=== PATIENT | female | born 2000 | race Caucasian/White ===

== ENCOUNTER 2023-08-07 23:16 | Emergency (ER) | payer SELFPAY ==
[2023-08-07 23:27] VITALS: BP 115/62; PULSE 111; RESP 15; TEMP 36.9; O2SAT 100; BMI 25.5
--- NOTE | 2023-08-08 00:04 | ED_ITS ---
HPI - General Adult General Chief complaint: Upper Respiratory Infection Stated complaint: BACK PAIN Time Seen by Provider: 08/07/23 23:56 Source: patient Mode of arrival: walk-in Limitations: no limitations History of Present Illness HPI narrative: This 23-year-old female with no significant medical history presents for evaluation of 2-3 days of generalized body aches with headache, back pain, chills and sweats. She has had some nausea but no vomiting or diarrhea. She states her mother is getting over influenza. She denies the possibility of . She has no chest pain or shortness of breath. She does not smoke. She denies any dizziness or syncope. She states she has been using NyQuil but not taking any additional medications. She is drinking oranges out of the vending machine while in the emergency department. Related Data Home Medications Medication Instructions Recorded Confirmed No Known Home Medications 08/07/23 08/07/23 Allergies Allergy/AdvReac Type Severity Reaction Status Date / Time No Known Drug Allergies Allergy Verified 08/07/23 23:29 Review of Systems ROS Status of ROS 10 or more systems reviewed and unremark able except as noted in history and below [facility] Social History Smoking status: Never smoker Exam Narrative Exam Narrative: Nurses note and vital signs reviewed and patient is not hypoxic.She was noted to be tachycardic with a pulse of 111 at triage General: Non toxic, mildly ill female resting comfortable in the stretcher, no respiratory distress, she is tearful at times Skin: Warm, dry, no pallor noted. There is no rash noted. Head: Normocephalic, atraumatic Eye: Normal conjunctiva, no drainage, EOMI. PERRL, no photophobia Ears, Nose, Mouth, and Throat: oral mucosa is sticky, no posterior pharyngeal redness or swelling Cardiovascular: Regular Rate and Rhythm tachycardic at triage at 111, pulse on exam 96 and regular Respiratory: Patient is in no distress, no accessory muscle use, lungs are clear to auscultation, no wheezing, rales or rhonchi Back: non-tender, no CVA tenderness bilaterally to percussion. GI: Normal bowel sounds, no tenderness to palpation, no masses appreciated. No rebound, guarding, or rigidity noted. Musculoskeletal: The patient has no evidence of calf tenderness, no pitting edema, symmetrical pulses noted bilaterally Neurological: A&O x4, normal speech, no focal deficits Psychiatric: Cooperative, tearful at times Constitutional Vital Signs, click to edit/add: Last Vital Signs Temp 98.4 F 08/07/23 23:27 Pulse 90 08/08/23 00:26 Resp 15 08/07/23 23:27 BP 105/57 08/08/23 00:26 Pulse Ox 100 08/08/23 00:26 O2 Del Method Room Air 08/07/23 23:27 Course Vital Signs Vital signs: Vital Signs Temperature 98.4 F 08/07/23 23:27 Pulse Rate 111 H 08/07/23 23:27 Respiratory Rate 15 08/07/23 23:27 Blood Pressure 115/62 08/07/23 23:27 Pulse Oximetry 100 08/07/23 23:27 Oxygen Delivery Method Room Air 08/07/23 23:27 Temperature 98.4 F 08/07/23 23:27 Pulse Rate 90 08/08/23 00:26 Respiratory Rate 15 08/07/23 23:27 Blood Pressure 105/57 08/08/23 00:26 Pulse Oximetry 100 08/08/23 00:26 Oxygen Delivery Method Room Air 08/07/23 23:27 Medical Decision Making MDM Narrative Medical decision making narrative: This 23-year-old female, nonsmoker, presents for evaluation of headache, chills, body aches that started 2 days ago. She had some nausea but no vomiting or diarrhea. She denies any chest pain or abdominal pain besides menstrual cramps.. She was noted to be tachycardic at triage with a pulse of 111. Her physical exam was benign. She was tested for influenza and Covid and a urinalysis was ordered due to her complaint of back pain. She is currently menstruating and having some abdominal cramping but her abdomen is soft and nontender. Her COVID 19 test is positive and influenza is negative, urine is negative for infection. She was medicated in emergency department IV fluids, Toradol and Tylenol and on reevaluation is feeling better. She is tolerating orange juice without any nausea or vomiting. The results of her labs were discussed with her. She is agreeable to PAxlovid and will be discharged home with Rx for Paxlovid and ibuprofen. Lab Data Labs: Lab Results 08/07/23 Range/Units 23:32 Urine Color Yellow (YELLOW) Urine Clarity Clear (CLEAR) Urine pH 5.5 (5.0-9.0) Ur Specific [place] >=1.030 A (1.005-1.025) Urine Protein 100 A (NEG/TRACE) mg/dL Urine Glucose (UA) Negative (NEGATIVE) mg/dL Urine Ketones Trace A (NEGATIVE) mg/dL Urine Occult Blood Large A (NEGATIVE) Urine Nitrite Negative (NEGATIVE) Urine Bilirubin Negative (NEGATIVE) Urine Urobilinogen 1.0 (0.2-1.0) EU/dL Ur Leukocyte Esterase Negative (NEGATIVE) Urine RBC 10-20 A (0-2) #/HPF Urine WBC 0-2 A (NONE SEEN) #/HPF Ur Squamous Epith Cells Few A (NONE/RARE) #/LPF Urine Crystals None seen (None Seen) #/HPF Urine Bacteria None seen (NONE SEEN) #/HPF Urine Casts None seen (NONE SEEN) #/LPF Urine Mucus Large A (NONE SEEN) SARS-CoV-2 (PCR) Positive A (NEGATIVE) Influenza Type A Ag Negative Influenza Type B Ag Negative Discharge Plan Discharge Chief Complaint: Upper Respiratory Infection Clinical Impression: COVID-19 Patient Disposition: Home, Self-Care Time of Disposition Decision: 01:28 Condition: Good Prescriptions / Home Meds: No Action No Known Home Medications Instructions: COVID-19 (Coronavirus Disease 2019) (ED), COVID-19: Slow the Coronavirus Spread (ED), Face Coverings (Masks) and COVID-19 (ED), How to Recover from COVID-19 at Home (ED) Stand Alone Forms: Portal Instructions Referrals: Stepan CAMACHO [Primary Care Provider] - 1 week
[2023-08-08 00:12] LABS: Influenza Virus A Antigen Negative; Influenza Virus B Antigen Negative; Internal Control Within Normal Limits; SARS-CoV-2 Ag POSITIVE (NEGATIVE)
[2023-08-08] MEDS: KETOROLAC TROMETHAMINE 30 MG/ML VIAL IVP (00:23)
[2023-08-08] MEDS: 0.9 % SODIUM CHLORIDE 1,000 ML 1000 ML IV (00:23)
[2023-08-08] MEDS: ACETAMINOPHEN 325 MG TABLET 650 MG PO (00:23)
[2023-08-08 00:26] VITALS: BP 105/57; PULSE 90; O2SAT 100
[2023-08-08 01:07] LABS: Bilirubin Urine NEGATIVE (NEGATIVE); Blood Urine LARGE (NEGATIVE); Clarity Urine CLEAR (CLEAR); Color Urine YELLOW (YELLOW); Glucose Urine UA NEGATIVE (NEGATIVE); Ketones Urine TRACE mg/dL (NEGATIVE); Leukocyte Esterase Urine NEGATIVE (NEGATIVE); Nitrite Urine NEGATIVE (NEGATIVE); Protein Urine 100 mg/dL (NEG/TRACE); Specific Gravity Urine >=1.030 (1.005-1.025); pH Urine 5.5 (5.0-9.0)
[2023-08-08 01:14] LABS: Bacteria Urine NONE SEEN #/HPF (NONE SEEN); WBC Urine 0-2 #/HPF (NONE SEEN)
[2023-08-08 01:15] LABS: Cast Seen? NONE SEEN #/LPF (NONE SEEN); Crystals Seen? None Seen #/HPF (None Seen); Mucus Urine LARGE (NONE SEEN); Squamous Epithelial Cell Urine FEW #/LPF (NONE/RARE)
[2023-08-08 01:38] VITALS: BP 102/57; PULSE 81; RESP 18; O2SAT 100
== END 2023-08-08 01:39 | disposition home or self-care (01) ==
PROVIDERS: Emergency Provider Emergency Medicine; PCP Family Medicine
DX: U07.1 COVID-19 (principal)
CPT/HCPCS: 81001; 87804; 87811; 96374; 99284

== ENCOUNTER 2024-01-07 20:15 | Outpatient (REF) | payer SELFPAY ==
--- OUTSIDE RECORDS SUMMARY | 2024-01-07 20:25 | XMS_ITS ---
Patient Summarization (C-CDA 2.1 CCD) Created on: January 07, 2024 ISABEL BROTHERS : 2000 Sex: Female Author Organization Sample organization Care Team Providers Care Risk Control Consultant Name Role Phone DOUG, DR Stepan BURKETT Primary Care Unavailable JUSTICE ., NIKKY Attending Unavailable JUSTICE ., NIKKY Admitting Unavailable EVARISTO BOWER Consulting Unavailable JUSTIEC ., NIKKY Consulting Unavailable DOUG, DR Stepan BURKETT Primary Care Unavailable MISC, DR HENRY Consulting Unavailable MISC, DR HENRY Attending Unavailable MISC, DR HENRY Admitting Unavailable BRIGHT ., DR RODRIGUES Admitting Unavailken NOVOA ., DR RODRIGUES Consulting Unavailken CAMACHO, DR Stepan BURKETT Primary Care Unavailable BRIGHT ., DR RODRIGUES Attending UnavailLOKI Tobar Attending Unavailable LOKI CAMACHO Referring Unavailable LOKI CAMACHO Attending Unavailable LOKI CAMACHO Referring Unavailable SEBLE ELLIS Attending Unavailable Encounters Encounter Date Encounter Type Care Provider Facility Start: 11-25-2023 End: 11-25-2023 ambulatory SEBLE ELLIS Not Available Start: 11-19-2023 End: 11-19-2023 ambulatory LOKI CAMACHO Not Available Start: 10-29-2023 End: 10-29-2023 ambulatory LOKI CAMACHO Not Available Start: 11-06-2022 End: 11-06-[address] Stepan CAMACHO Facility:[facility] Start: 03-12-2022 End: 03-12-[address] Stepan CAMACHO Facility:[facility] Start: 12-22-2021 End: 12-22-[address] LILIA NOVOA . Facility: Payers Date Payer Category Payer Medicaid [id number] 2000 Unknown [id number] [id number] 2000 Unknown [id number] 2.16.84 [id number] 2000 Unknown [id number] 2.16.84 [id number] 2000 Unknown [id number] 2.16.84 [id number] 2002 Unknown [id number] 2.16.84 [id number] 2000 Unknown [id number] 2.16.84 [id number] 1957 Unknown [id number] Problems Active Problems Problem Classification Problem Date Documented Da te Episodic/Chronic Nausea and vomiting (4 sources) Nausea with vomiting, unspecified; Translations: [NAUSEA WITH VOMITING UNSPECIFIED] Onset: 11-06-2022 Episodic Unclassified (3 sources) CONTACT W/AND (SUSP) EXPOS COVID-19; Translations: [CONTACT W/AND (SUSP) EXPOS COVID-19] Onset: 03-15-2022 Past or Other Problems Problem Classification Problem Date Documented Date Episodic/Chronic Immunizations and screening for infectious disease (4 sources) Contact with and (suspected) exposure to infections with a predominantly sexual mode of transmission; Translations: [CONTCT W EXPOS INFECT SEXUAL TRNSMS] Onset: 12-22-2021 Episodic Other upper respiratory infections (1 source) Acute upper respiratory infection, unspecified; Translations: [ACUTE UP RESPIRATORY INFECTION UNS] Onset: 03-15-2022 Episodic Unclassified (1 source) CONTACT W/AND (SUSP) EXPOS COVID-19; Translations: [CONTACT W/AND (SUSP) EXPOS COVID-19] Onset: 03-12-2022 Results Test Name Value Interpretation Reference Range Facil ity AMYLASEon 11-06-2022 Amylase [Catalytic activity/Vol] 54 U/L Normal 25-115 [facility] Comment on above: Performed By: #### A MY, CMP, LIPA #### [facility] [address] [address] [address] Grover Mendoza CBC AUTO DIFFon 11-06-2022 BASO # 0.0 103/ul Normal 0.0-0.1 [facility] Comment on above: Performed By: #### C BC #### [facility] [address] [place] [address] Dr. Grover Mendoza Basophils/100 WBC (Bld) 0.1 % Critically low 0.2-2.0 [facility] Comment on above: Performed By: #### C BC #### [facility] [address] [place] [address] Dr. Grover Mendoza EO # 0.0 103/ul Normal 0.0-0.7 [facility] Comment on above: Performed By: #### C BC #### [facility] [address] [place] [address] Dr. Grover Mendoza Eosinophils/100 WBC (Bld) 0.1 % Critically low 0.9-7.0 [facility] Comment on above: Performed By: #### C BC #### [facility] [address] [place] [address] Dr. Grover Mendoza Erythrocyte distribution width (RBC) [Ratio] 12.9 % Normal 11.0-15.0 [facility] Comment on above: Performed By: #### C BC #### [facility] [address] [place] [address] Dr. Grover Mendoza Hematocrit (Bld) [Volume fraction] 41.1 % Normal 36.0-48.0 [facility] Comment on above: Performed By: #### C BC #### [facility] [address] [place] [address] Dr. Grover Mendoza Hemoglobin (Bld) [Mass/Vol] 13.5 g/dL Normal 12.0-16.0 [facility] Comment on above: Performed By: #### C BC #### [facility] [address] [place] [address] Dr. Grover Mendoza IG # 0.05 10e3/ul Critically high 0.00-0.03 [facility] Comment on above: Performed By: #### C BC #### [facility] [address] [place] [address] Dr. Grover Mendoza IG % 0.3 % Normal 0.0-0.5 [facility] Comment on above: Performed By: #### C BC #### [facility] [address] [address] [address] Grover Mendoza LYMPH # 0.4 103/ul Critically low 1.2-3.8 [facility] Comment on above: Performed By: #### C BC #### [facility] [address] [address] [address] Grover Mendoza Lymphocytes/100 WBC (Bld) 2.6 % Critically low 20.5-60.0 [facility] Comment on above: Performed By: #### C BC #### [facility] [address] [place] [address] Dr. Grover Mendoza MANUAL DIFF REQ NO Normal [facility] Comment on above: Performed By: #### C BC #### [facility] [address] [place] [address] Dr. Grover Mendoza MCH (RBC) [Entitic mass] 30.7 pg Normal 26.7-34.0 [facility] Comment on above: Performed By: #### C BC #### [facility] [address] [place] [address] Dr. Grover Mendoza MCHC (RBC) [Mass/Vol] 32.8 g/dL Normal 29.9-35.2 [facility] Comment on above: Performed By: #### C BC #### [facility] [address] [place] [address] Dr. Grvoer Mendoza MCV (RBC) [Entitic vol] 93.4 fL Normal 81.0-99.0 [facility] Comment on above: Performed By: #### C BC #### [facility] [address] [place] [address] Dr. Grover Mendoza MONO # 0.4 103/ul Normal 0.3-0.8 [facility] Comment on above: Performed By: #### C BC #### [facility] [address] [place] [address] Dr. Grover Mendoza Monocytes/100 WBC (Bld) 2.7 % Normal 1.7-12.0 [facility] Comment on above: Performed By: #### C BC #### [facility] [address] [address] [address] Grover Mendoza NEUT # 13.8 103/ul Critically high 1.4-6.5 [facility] Comment on above: Performed By: #### C BC #### [facility] [address] [place] [address] Dr. Grover Mendoza Neutrophils/100 WBC (Bld) 94.2 % Critically high 43.0-75.0 [facility] Comment on above: Performed By: #### C BC #### [facility] [address] [place] [address] Dr. Grover Mendoza Platelet mean volume (Bld) [Entitic vol] 10.2 fL Normal 9.5-13.5 [facility] Comment on above: Performed By: #### C BC #### [facility] [address] [place] [address] Dr. Grover Mendoza PLT 215 103/ul Normal 150-450 [facility] Comment on above: Performed By: #### C BC #### [facility] [address] [place] [address] Dr. Grover Mendoza RBC 4.40 106/ul Normal 4.20-5.40 [facility] Comment on above: Performed By: #### C BC #### [facility] [address] [place] [address] Dr. Grover Mendoza WBC 14.7 103/ul Critically high 4.0-11.0 [facility] Comment on above: Performed By: #### C BC #### [facility] [address] [place] [address] Dr. Grover Mendoza ER URINE PROFILEon 3 Bilirubin Ql (U) Negative Normal NEGATIVE [facility] Comment on above: Performed By: #### E KIMMY PREGU UMICRO #### [facility] [address] [place] [address] Dr. Grover Mendoza Clarity (U) CLEAR Normal CLEAR [facility] Comment on above: Performed By: #### [place] RUR, PREGU, UMICRO #### [facility] [address] [address] [address] Grover Mendoza Color (U) YELLOW Normal YELLOW [facility] Comment on above: Performed By: #### E RUR, PREGU, UMICRO #### [facility] [address] [address] [address] Grover ONEAL A micrscopic examination will be performed if indicated. Normal [facility] Comment on above: Performed By: #### E RUR, PREGU, UMICRO #### [facility] [address] [address] [address] Grover Mendoza Glucose Ql (U) Negative Normal NEGATIVE [facility] Comment on above: Performed By: #### Duke RUR, PREGU, UMICRO #### [facility] [address] [address] [address] Grover Mendoza Hemoglobin Ql (U) MODERATE Abnormal NEGATIVE [facility] Comment on above: Performed By: #### [place] RUR, PREGU, UMICRO #### [facility] [address] [address] [address] Grover Mendoza Ketones Ql (U) TRACE Abnormal NEGATIVE [facility] Comment on above: Performed By: #### [place] RUR, PREGU, UMICRO #### [facility] [address] [address] [address] Grover Mendoza LEUKOCYTES Negative Normal NEGATIVE [facility] Comment on above: Performed By: #### [place] RUR, PREGU, UMICRO #### [facility] [address] [address] [address] Grover Mendoza Nitrite Ql (U) Negative Normal NEGATIVE [facility] Comment on above: Performed By: #### E RUR, PREGU, UMICRO #### [facility] [address] [address] [address] Grover Mendoza pH (U) 5.5 [pH] Normal 5-9 [facility] Comment on above: Performed By: #### E RUR, PREGU, UMICRO #### [facility] [address] [address] [address] Grover Mendoza Protein (U) [Mass/Vol] 30 mg/dL Abnormal NEGATIVE/ TRACE [facility] Comment on above: Performed By: #### PREMA CRISTINA UMICRO #### [facility] [address] [place] [address] Dr. Grover Mendoza SPEC GRAVITY >=1.030 Abnormal 1.005-<=1.025 [facility] Comment on above: Performed By: #### PREMA CRISTINA UMICRO #### [facility] [address] [place] [address] Dr. Grover Mendoza UR MICRO IND INDICATED Normal [facility] Comment on above: Performed By: #### PREMA CRISTINA UMICRO #### [facility] [address] [place] [address] Dr. Grover Mendoza Urobilinogen Qn (U) 0.2 {Meg'U}/dL Normal 0.2 - 1.0 [facility] Comment on above: Performed By: #### PREMA CRISTINA UMICRO #### [facility] [address] [place] [address] Dr. Grover Mendoza LIPASEon 11-06-2022 Lipase [Catalytic activity/Vol] 58.0 U/L Critically low 73.0-393.0 [facility] Comment on above: Performed By: #### A MY, CMP, LIPA #### [facility] [address] [place] [address] Dr. Grover Mendoza URon 11-06-2022 , QUAL Negative Normal NEGATIVE [facility] Comment on above: Performed By: #### E PREMA ONEAL, UMICRO #### [facility] [address] [place] [address] Dr. Grover Mendoza PROF 14(COMP METB)on 023 Albumin [Mass/Vol] 3.3 g/dL Critically low 3.4-5.0 [facility] Comment on above: Performed By: #### A MY, CMP, LIPA #### [facility] [address] [address] [address] Grover Mendoza Albumin/Globulin [Mass ratio] 1.1 {ratio} Normal [facility] Comment on above: Performed By: #### A MY, CMP, LIPA #### [facility] [address] [address] [address] Grover Mendoza ALP [Catalytic activity/Vol] 73 U/L Normal 46-116 [facility] Comment on above: Performed By: #### A MY, CMP, LIPA #### [facility] [address] [place] [address] Dr. Grover Mendoza ALT [Catalytic activity/Vol] 28 U/L Normal 14-59 [facility] Comment on above: Performed By: #### A MY, CMP, LIPA #### [facility] [address] [place] [address] Dr. Grover Mendoza Anion gap [Moles/Vol] 12.4 mmol/L Normal [facility] Comment on above: Performed By: #### A MY, CMP, LIPA #### [facility] [address] [place] [address] Dr. Grover Mendoza AST [Catalytic activity/Vol] 20 U/L Normal 15-37 [facility] Comment on above: Performed By: #### A MY, CMP, LIPA #### [facility] [address] [place] [address] Dr. Grover Mendoza Bilirubin [Mass/Vol] 0.9 mg/dL Normal 0.2-1.0 [facility] Comment on above: Performed By: #### A MY, CMP, LIPA #### [facility] [address] [place] [address] Dr. Grover Mendoza Calcium [Mass/Vol] 8.4 mg/dL Critically low 8.5-10.1 [facility] Comment on above: Performed By: #### A MY, CMP, LIPA #### [facility] [address] [place] [address] Dr. Grover Mendoza Chloride [Moles/Vol] 106 mmol/L Normal 98-107 [facility] Comment on above: Performed By: #### A MY, CMP, LIPA #### [facility] [address] [address] [address] Grover Mendoza CO2 [Moles/Vol] 26.7 mmol/L Normal 21.0-32.0 [facility] Comment on above: Performed By: #### A MY, CMP, LIPA #### [facility] [address] [address] [address] Grover Mendoza Creatinine [Mass/Vol] 0.63 mg/dL Normal 0.55-1.02 [facility] Comment on above: Performed By: #### A MY, CMP, LIPA #### [facility] [address] [address] [address] Grover Mendoza EGFR-AF PANAMANIAN >60 Normal >=60 [facility] Comment on above: Performed By: #### A MY, CMP, LIPA #### [facility] [address] [address] [address] Grover Mendoza EGFR-NON AF PANAMANIAN >60 Normal >=60 [facility] Comment on above: Performed By: #### A MY, CMP, LIPA #### [facility] [address] [address] [address] Grover Mendoza Globulin (S) [Mass/Vol] 3.1 g/dL Normal [facility] Comment on above: Performed By: #### A MY, CMP, LIPA #### [facility] [address] [address] [address] Grover Mendoza Glucose [Mass/Vol] 93 mg/dL Normal 74-106 [facility] Comment on above: Performed By: #### A MY, CMP, LIPA #### [facility] [address] [address] [address] Grover Mendoza Potassium [Moles/Vol] 4.1 mmol/L Normal 3.5-5.1 [facility] Comment on above: Performed By: #### A MY, CMP, LIPA #### [facility] [address] [address] [address] Grover Mendoza Protein [Mass/Vol] 6.4 g/dL Normal 6.4-8.2 [facility] Comment on above: Performed By: #### A MY, CMP, LIPA #### [facility] [address] [address] [address] Grover Mendoza Sodium [Moles/Vol] 141 mmol/L Normal 136-145 [facility] Comment on above: Performed By: #### A MY, CMP, LIPA #### [facility] [address] [place] [address] Dr. Grover Mendoza Urea nitrogen [Mass/Vol] 12.0 mg/dL Normal 7.0-18.0 [facility] Comment on above: Performed By: #### A MY, CMP, LIPA #### [facility] [address] [place] [address] Dr. Grover Mendoza Urea nitrogen/Creatinin e [Mass ratio] 19.0 mg/mg Normal [facility] Comment on above: Performed By: #### A MY, CMP, LIPA #### [facility] [address] [place] [address] Dr. Grover Mendoza URINE MICROSCOPIC ONLYon BACTERIA TRACE Abnormal NONE SEEN [facility] Comment on above: Performed By: #### E RUR PREGU, UMICRO #### [facility] [address] [place] [address] Dr. Grover Mendoza Bacteria identified Cx Nom (U) NOT INDICATED Normal [facility] Comment on above: Performed By: #### E RUR PREGU, UMICRO #### [facility] [address] [place] [address] Dr. Grover Mendoza CAST NONE SEEN Normal NONE SEEN [facility] Comment on above: Performed By: #### E RUR, PREGU, UMICRO #### [facility] [address] [place] [address] Dr. Grover Mendoza Crystals LM Nom (Urine sed) NONE SEEN Normal NONE SEEN [facility] Comment on above: Performed By: #### E RUR, PREGU, UMICRO #### [facility] [address] [place] [address] Dr. Grover Mendoza Epithelial cells LM Ql (Urine sed) MODERATE Abnormal NONE SEEN /RARE [facility] Comment on above: Performed By: #### E RUR, PREGU, UMICRO #### [facility] [address] [address] [address] Grover Mendoza MUCOUS TRACE Abnormal NONE SEEN [facility] Comment on above: Performed By: #### E RUR, PREGU, UMICRO #### [facility] [address] [address] [address] Grover Mendoza RBC 5-10 Abnormal 0-2 [facility] Comment on above: Performed By: #### E RUR, PREGU, UMICRO #### [facility] [address] [address] [address] Grover Mendoza WBC 0-2 Abnormal NONE SEEN [facility] Comment on above: Performed By: #### E RUR, PREGU, UMICRO #### [facility] [address] [address] [address] Grover Mendoza XR ABD FLAT UP_PA Carol Ann 11-06 XR ABD FLAT UP_PA CH EXAM TYPE: XR ABD FLAT UP_PA CH EXAM DATE AND TIME: 11/06/2022 7:48 PM EDT INDICATION: 22 years old Female with nausea and vomiting COMPARISON: None. TECHNIQUE: Frontal view of the chest. Supine and upright views of the abdomen. FINDINGS: No pneumothorax, pleural effusion or focal consolidation. Heart size is within normal limits. Normal nonobstructive bowel gas pattern. No subdiaphragmatic free intraperitoneal air. No pathologic calcifications. Visualized osseous structures appear unremarkable. IMPRESSION: No significant abnormality. Electronically authenticated by: EVARISTO BOWER Date: 2022-11-06 20:53 Normal [facility] Covid-19 PCR (CVDTBH)on 08 SARS-CoV-2 (COVID-19) RNA ATTILA+probe Ql (Unsp spec) Not detected Normal NOT DETECTED [facility] Comment on above: Result Comment: This test is not yet approved or cleared by the [place] FDA. When there are no FDA-approved or cleared tests available, and other criteria are met, FDA can make tests available under an emergency access mechanism called an Emergency Use Authorization (EUA). The EUA for this test is supported by the [employer] of Health and Human Service's (HHS's) declaration that circumstances exist to justify the emergency use of in vitro diagnostics for the detection and/or diagnosis of the virus that causes COVID-19. This EUA will remain in effect (meaning this test can be used) for the duration of the COVID-19 declaration justifying emergency of IVDs, unless it is terminated or revoked by FDA (after which the test may no longer be used). When diagnostic testing is negative, the possibility of a false negative should be considered in the context of a patient's recent exposures and the presence of clinical signs and symptoms consistent with SARS-CoV-2. Performed By: #### V AGINT #### [facility] [address] [place] [address] Dr. Grover Mendoza CHLAMYDIA/GONOCOCCUS ATTILA ( AB/URINE/PAPon 12-26-2021 Chlamydia trachomatis, ATTILA Negative Normal Negative [facility] Comment on above: Performed By: #### C T/NGNA #### [facility] [address] [place] [address] Dr. Grover Mendoza Neisseria gonorrhoeae, ATTILA Negative Normal Negative [facility] Comment on above: Performed By: #### C T/NGNA #### [facility] [address] [place] [address] Dr. Grover Mendoza VAGINITIS/VAGINOSIS DNA PROB Emil 12-24-2021 Jessi species Negative Normal Negative [facility] Comment on above: Performed By: #### V AGINT #### [facility] [address] [place] [address] Dr. Grover Mendoza Gardnerella vaginalis Positive Abnormal Negative [facility] Comment on above: Performed By: #### V AGINT #### [facility] [address] [place] [address] Dr. Grover Mendoza Trichomonas vaginalis Negative Normal Negative [facility] Comment on above: Performed By: #### V AGINT #### [facility] [address] [place] [address] Dr. Grover Mendoza Summary Purpose Family History No Family History Records FoundNo Family History Records Found Advance Directives No Advanced Directives Records FoundNo Advanced Directives Records Found Additional Source Comments INFORMATION SOURCE (unrecogn ized section and content) DATE CREATED AUTHOR 11/10/2022 [facility] DATE CREATED AUTHOR AUTHOR'S RHONDA SALAZAR 11/26/2023 [facility] EPIC FOR RECORDS PERTAINING TO PATIENTS WHO ARE OR HAVE BEEN ENROLLED IN A CHEMICAL DEPENDENCY/SUBSTANCEABUSE PROGRAM, SOME INFORMATION MAY BE OMITTED. This clinical summary was aggregated from multiple sources. Caution should be exercised in using it in the provision of clinical care. This summary normalizes information from multiple sources, and as a consequence, information in this document may materially change the coding, format and clinical context of patient data. In addition, data may be omitted in some cases. CLINICAL DECISIONS SHOULD BE BASED ON THE PRIMARY CLINICAL RECORDS. [employer] provides no warranty or guarantee of the accuracy or completeness of information in this document.
== END 2024-01-07 20:16 | disposition home or self-care (01) ==
LOC: LAB 20:15
PROVIDERS: PCP Family Medicine; Visit Provider Obstetrics & Gynecology
DX: Z01.419 Encounter for gynecological examination (general) (routine) without abnormal findings (principal)
CPT/HCPCS: 88175

== ENCOUNTER 2024-01-23 13:42 | Emergency (ER) | payer MEDICAID, SELFPAY ==
[2024-01-23 13:58] VITALS: BP 108/59; PULSE 74; TEMP 37.2; O2SAT 95; BMI 25.2
--- NOTE | 2024-01-23 14:08 | ED_ITS ---
HPI HPI - General Adult General Chief complaint: Recheck/Abnormal Lab/Rx Stated complaint: VOMITING, CHILLS, HEADACHE Time Seen by Provider: 01/23/24 14:02 Source: patient Mode of arrival: walk-in Limitations: no limitations History of Present Illness HPI narrative: Patient is a 23-year-old female who presents to the emergency department for work clearance. 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 Her symptoms soon resolved. She has no focal medical complaints on arrival to the ER today but states that her employer required her to be evaluated by a provider and cleared to go back to work. She has no persistent dizziness, visual changes, fevers, upper respiratory symptoms, abdominal pain, vomiting or diarrhea. She is not concerned for . Related Data Home Medications ?Medication ?Instructions ?Recorded ?Confirmed aripiprazole 5 mg tablet 5 mg PO DAILY 01/23/24 01/23/24 escitalopram oxalate 10 mg tablet 10 mg PO DAILY 01/23/24 01/23/24 Previous Rx's ?Medication ?Instructions ?Recorded ondansetron 4 mg disintegrating 4 mg PO Q6H PRN nausea and 01/23/24 tablet vomiting #12 tabs Allergies Allergy/AdvReac Type Severity Reaction Status Date / Time No Known Drug Allergies Allergy Verified 01/23/24 14:04 Opioid HPI Opioid Management Most Recent Opioid Data: No Data to Display Review of Systems ROS Constitutional Denies: fever or chills Eyes Denies: change in vision Ears, nose, mouth, and throat Denies: throat pain or nasal congestion Cardiovascular Denies: chest pain Respiratory Denies: shortness of breath Gastrointestinal Reports: nausea and vomiting Musculoskeletal Denies: back pain Integumentary/Breast Denies: rash Neurological Reports: dizziness; Denies: headache Hematologic/Lymphatic Denies: easy bruising or easy bleeding [facility] Medical History (Updated 01/23/24 @ 14:11 by MIGUE Fernandez) Depression ?F32.A - Depression, unspecified (ICD-10) Social History Smoking status: Never smoker Exam Narrative Exam Narrative: Gen.: Awake, alert, in no distress Head: Normocephalic, atraumatic ENT: Moist mucous membranes Respiratory: No respiratory distress, lungs clear bilaterally Cardio: Regular rate and rhythm Gastrointestinal: Abdomen is soft, nondistended and nontender to palpation Extremities: Moves extremities equally Psych: Normal mood and affect Neuro: No focal neuro deficit Skin: Warm, dry, intact Constitutional Vital Signs, click to edit/add: Last Vital Signs Temp 99.0 F 01/23/24 13:58 Pulse 74 01/23/24 13:58 Resp 16 01/23/24 13:58 BP 108/59 01/23/24 13:58 Pulse Ox 95 01/23/24 13:58 O2 Del Method Room Air 01/23/24 13:58 Course Vital Signs Vital signs: Vital Signs Temperature 99.0 F 01/23/24 13:58 Pulse Rate 74 01/23/24 13:58 Respiratory Rate 16 01/23/24 13:58 Blood Pressure 108/59 01/23/24 13:58 Pulse Oximetry 95 01/23/24 13:58 Oxygen Delivery Method Room Air 01/23/24 13:58 Temperature 99.0 F 01/23/24 13:58 Pulse Rate 74 01/23/24 13:58 Respiratory Rate 16 01/23/24 13:58 Blood Pressure 108/59 01/23/24 13:58 Pulse Oximetry 95 01/23/24 13:58 Oxygen Delivery Method Room Air 01/23/24 13:58 Medical Decision Making MDM Narrative Medical decision making narrative: Patient with no focal medical complaints in the ER and stable vital signs. She was Encouraged to be reevaluated if she develops any worsening of symptoms, Zofran sent to the pharmacy if needed. Return to the ER if symptoms change or worsen. Medical Records Medical records reviewed: Yes I reviewed the patient's medical records Discharge Plan Discharge Stand Alone Forms: Portal Instructions Chief Complaint: Recheck/Abnormal Lab/Rx Clinical Impression: Vomiting, Encounter to obtain excuse from work Patient Disposition: Home, Self-Care Time of Disposition Decision: 14:11 Condition: Good Prescriptions / Home Meds: New ondansetron 4 mg tablet,disintegrating 4 mg PO Q6H PRN (Reason: nausea and vomiting) Qty: 12 0RF No Action aripiprazole 5 mg tablet 5 mg PO DAILY escitalopram oxalate 10 mg tablet 10 mg PO DAILY Print Language: Azerbaijani Instructions: Acute Nausea and Vomiting (ED) Referrals: Stepan CAMACHO [Primary Care Provider] - 1 week
== END 2024-01-23 14:15 | disposition home or self-care (01) ==
PROVIDERS: Emergency Provider Student in an Organized Health Care Education/Training Program; PCP Family Medicine
DX: R11.10 Vomiting, unspecified (principal)
CPT/HCPCS: 99283

== ENCOUNTER 2024-08-08 18:46 | Emergency (ER) | payer MEDICAID, SELFPAY ==
--- OUTSIDE RECORDS SUMMARY | 2024-08-08 18:52 | XMS_ITS | CCD ---
Author Organization [facility] Care Team Providers Care Lpc Name Role Phone DR Stepan CARRERO Primary Care Unavailable JUSTICE ., NIKKY Attending Unavailable JUSTICE ., NIKKY Admitting Unavailable EVARISTO BOWER Consulting Unavailable JUSTICE ., NIKKY Consulting Unavailable DOUG, DR Stepan BURKETT Primary Care Unavailable MISC, DR HENRY Consulting Unavailable MISC, DR HENRY Attending Unavailable MISC, DR HENRY Admitting Unavailable KIANAASIMillicent ., DR RODRIGUES Admitting Unavailken NOVOA ., DR RODRIGUSE Consulting Unavailken CARRERO, DR Stepan BURKETT Primary Care Unavailable KARDAVID ., DR RODRIGUES Attending UnavailLoki Woody DO Primary Care Provider LOKI CARRERO Attending Unavailable LOKI CARRERO Referring Unavailable LOKI CARRERO Attending Unavailable LOKI CARRERO Referring Unavailable SEBLE MONREAL Attending Unavailable SEBLE MONREAL Attending Unavailable KATHARINE BYRNES Attending Unavailable KATHARINE BYRNES Attending Unavailable Allergies Allergy Classification Reported Allergen(s) Allergy Type Date of Onset Reaction(s) Facility (7 sources) Sertraline Drug Allergy 10-29-2023 [facility] Work Phone: Medications Current Medications Medication Drug Class(es) Dates Sig (Normalized) Sig (Original) ARIPiprazole 5 mg oral tablet (7 sources) Atypical Antipsychotic Start: 05-01-2024 take 1 tablet by mouth once daily ARIPiprazole (Abilify) 5 MG tablet Indications: Bipolar II disorder (CMS/HCC) , Unspecified mood (affective) disorder (CMS/HCC) TAKE 1 TABLET BY MOUTH EVERY DAY 30 tablet 2 05/01/2024 Active biotin 1 mg chewable tablet (7 sources) Biotin 1000 MCG chewable tablet Chew Active escitalopram 10 mg oral tablet (7 sources) Serotonin Reuptake Inhibitor Start: 11-19-2023 take 1 tablet by mouth once daily escitalopram (Lexapro) 10 MG tablet Indications: Bipolar II disorder (CMS/HCC) Take 1 tablet (10 mg) by mouth Daily 30 tablet 5 11/19/2023 Active fluconazole 150 mg oral tablet (2 sources) Azole Antifungal Start: 07-23-2024 End: 07-27-2024 take 1 tablet by mouth once fluconazole (Diflucan) 150 MG tablet Indications: Yeast infection Take 1 tablet (150 mg) by mouth every 3rd (third) day for 2 doses 2 tablet 07/23/2024 07/27/2024 Active Problems Active Problems Problem Classification Problem Date Documented Date Episodic/Chronic Anxiety disorders (7 sources) Anxiety; Translations: [Anxiety disorder, unspecified] Onset: 10-29-2023 10-29-2023 Chronic Immunizations and screening for infectious disease (10 sources) Contact with and (suspected) exposure to infections with a predominantly sexual mode of transmission; Translations: [Exposure to sexually transmissible disorder] Onset: 12-22-2021 Episodic Inflammatory diseases of female pelvic organs (4 sources) Bacterial vaginosis; Translations: [Acute vaginitis] Onset: 07-23-2024 07-23-2024 Episodic Malaise and fatigue (7 sources) Chronic fatigue syndrome; Translations: [Chronic fatigue syndrome] Onset: 10-29-2023 10-29-2023 Chronic Menstrual disorders (7 sources) Menorrhagia; Translations: [Excessive and frequent menstruation with regular cycle] Onset: 10-29-2023 10-29-2023 Chronic Mood disorders (20 sources) Affective psychosis; Translations: [Unspecified mood [affective] disorder] Onset: 10-29-2023 10-29-2023 Chronic Mycoses (2 sources) Mycosis; Translations: [Candidiasis, unspecified] 07-23-2024 Episodic Nausea and vomiting (4 sources) Nausea with vomiting, unspecified; Translations: [NAUSEA WITH VOMITING UNSPECIFIED] Onset: 11-06-2022 Episodic Sexually transmitted infections (not HIV or hepatitis) (4 sources) Chlamydia trachomatis infection; Translations: [Sexually transmitted chlamydial infection of other sites] Onset: 07-23-2024 07-23-2024 Episodic Unclassified (3 sources) CONTACT W/AND (SUSP) EXPOS COVID-19; Translations: [CONTACT W/AND (SUSP) EXPOS COVID-19] Onset: 03-15-2022 Past or Other Problems Problem Classification Problem Date Documented Da te Episodic/Chronic Mood disorders (7 sources) Mood swings; Translations: [Emotional lability] Onset: 10-29-2023 10-29-2023 Episodic Mood disorders (7 sources) Mood disorders Onset: 10-29-2023 10-29-2023 Other upper respiratory infections (1 source) Acute upper respiratory infection, unspecified; Translations: [ACUTE UP RESPIRATORY INFECTION UNS] Onset: 03-15-2022 Episodic Residual codes; unclassified (7 sources) Insomnia; Translations: [Insomnia, unspecified] Onset: 10-29-2023 10-29-2023 Episodic Unclassified (1 source) CONTACT W/AND (SUSP) EXPOS COVID-19; Translations: [CONTACT W/AND (SUSP) EXPOS COVID-19] Onset: 03-12-2022 Results Test Name Value Interpretation Reference Range Facility RECURRENT VAGINITIS (HTRX)on 06-24-2024 ATOPOBIUM VAGINAE 19.87 Abnormal [facility] ATOPOBIUM VAGINAE Detected Abnormal [facility] BVAB 2,3 (BACTERIAL VAGINOSIS ASSOCIATED BACTERIA 2, 3); MOBILUNCUS SPP 10.822 Abnormal [facility] BVAB 2,3 (BACTERIAL VAGINOSIS ASSOCIATED BACTERIA 2, 3); MOBILUNCUS SPP Detected Abnormal [facility] JESSI ALBICANS, PARAPSILOSIS, TROPICALIS 0 [facility] JESSI ALBICANS, PARAPSILOSIS, TROPICALIS Not detected [facility]ESSI GLABRATA 0 [facility]ESS[facility] GLAB[facility]ATA [facility] JESSI KRUSEI 0 [facility] JESSI KRUSEI Not detected [facility] CHLAMYDIA TRACHOMATIS 30.948 Abnormal [facility] CHLAMYDIA TRACHOMATIS Detected Abnormal [facility] ERMB, C; MEFA 24.579 Abnormal [facility] Health care ERMB, C; MEFA Detected Abnormal [facility] Health care GARDNERELLA VAGINALIS 27.333 Abnormal [facility] GARDNERELLA VAGINALIS Detected Abnormal [facility] Interpretation and review of laboratory results Abnormal [facility] re MEGASPHAERA (TYPES 1, 2) 22.173 Abnormal [facility] MEGASPHAERA (TYPES 1, 2) Detected Abnormal [facility] MYCOPLASMA GENITALIUM 0 [facility] MYCOPLASMA GENITALIUM Not detected [facility] NEISSERIA GONORRHOEAE 0 [facility] NEISSERIA GONORRHOEAE Not detected [facility] TET B, TET M 21.151 Abnormal [facility] are TET B, TET M Detected Abnormal [facility]c are TRICHOMONAS VAGINALIS 0 [facility] TRICHOMONAS VAGINALIS Not detected [facility] AMYLASEon 11-06-2022 Amylase [Catalytic activity/Vol] 54 U/L Normal 25-[address] [facility] Comment on above: Performed By: #### A MY, CMP, LIPA #### [facility] [address] [place] [address] Dr. Grover Mendoza CBC AUTO DIFFon 11-06-2022 BASO # 0.0 103/ul Normal 0.0-0.[address] [facility] Comment on above: Performed By: #### C BC #### [facility] [address] [place] [address] Dr. Grover Mendoza Basophils/100 WBC (Bld) 0.1 % Critically low 0.2-2.[address] [facility] Comment on above: Performed By: #### C BC #### [facility] [address] [place] [address] Dr. Grover Mendoza EO # 0.0 103/ul Normal 0.0-0.[address] [facility] Comment on above: Performed By: #### C BC #### [facility] [address] [place] [address] Dr. Grover Mendoza Eosinophils/100 WBC (Bld) 0.1 % Critically low 0.9-7.0 [facility] Comment on above: Performed By: #### C BC #### [facility] [address] [place] [address] Dr. Grover Mendoza Erythrocyte distribution width (RBC) [Ratio] 12.9 % Normal 11.0-15.0 [facility] Comment on above: Performed By: #### C BC #### [facility] [address] [place] [address] Dr. Grover Mendoza Hematocrit (Bld) [Volume fraction] 41.1 % Normal 36.0-48.[address] [facility] Comment on above: Performed By: #### C BC #### [facility] [address] [address] [address] Grover Mendoza Hemoglobin (Bld) [Mass/Vol] 13.5 g/dL Normal 12.0-16.[address] [facility] Comment on above: Performed By: #### C BC #### [facility] [address] [address] [address] Grover Mendoza IG # 0.05 10e3/ul Critically high 0.00-0.03 [facility] Comment on above: Performed By: #### C BC #### [facility] [address] [address] [address] Grover Mendoza IG % 0.3 % Normal 0.0-0.[address] [facility] Comment on above: Performed By: #### C BC #### [facility] [address] [address] [address] Grover Mendoza LYMPH # 0.4 103/ul Critically low 1.2-3.8 [facility] Comment on above: Performed By: #### C BC #### [facility] [address] [address] [address] Grover Mendoza Lymphocytes/100 WBC (Bld) 2.6 % Critically low 20.5-60.[address] [facility] Comment on above: Performed By: #### C BC #### [facility] [address] [place] [address] Dr. Grover Mendoza MANUAL DIFF REQ NO Normal [facility] Comment on above: Performed By: #### C BC #### [facility] [address] [address] [address] Grover Mendoza MCH (RBC) [Entitic mass] 30.7 pg Normal 26.7-34.[address] [facility] Comment on above: Performed By: #### C BC #### [facility] [address] [address] [address] Grover Mendoza MCHC (RBC) [Mass/Vol] 32.8 g/dL Normal 29.9-35.2 [facility] Comment on above: Performed By: #### C BC #### [facility] [address] [address] [address] Grover Mendoza MCV (RBC) [Entitic vol] 93.4 fL Normal 81.0-99.0 [facility] Comment on above: Performed By: #### C BC #### [facility] [address] [place] [address] Dr. Grover Mendoza MONO # 0.4 103/ul Normal 0.3-0.8 [facility] Comment on above: Performed By: #### C BC #### [facility] [address] [place] [address] Dr. Grover Mendoza Monocytes/100 WBC (Bld) 2.7 % Normal 1.7-12.0 [facility] Comment on above: Performed By: #### C BC #### [facility] [address] [place] [address] Dr. Grover Mendoza NEUT # 13.8 103/ul Critically high 1.4-6.5 The [facility] Comment on above: Performed By: #### C BC #### [facility] [address] [place] [address] Dr. Grover Mendoza Neutrophils/100 WBC (Bld) 94.2 % Critically high 43.0-75.0 [facility] Comment on above: Performed By: #### C BC #### [facility] [address] [place] [address] Dr. Grover Mendoza Platelet mean volume (Bld) [Entitic vol] 10.2 fL Normal 9.5-13.5 [facility] Comment on above: Performed By: #### C BC #### [facility] [address] [place] [address] Dr. Grover Mendoza PLT 215 103/ul Normal 150-450 [facility] Comment on above: Performed By: #### C BC #### [facility] [address] [place] [address] Dr. Grover Mendoza RBC 4.40 106/ul Normal 4.20-5.40 [facility] Comment on above: Performed By: #### C BC #### [facility] [address] [place] [address] Dr. Grover Mendoza WBC 14.7 103/ul Critically high 4.0-11.0 The [facility] Comment on above: Performed By: #### C BC #### [facility] [address] [place] [address] Dr. Grover RODRÍGUEZ URINE PROFILEon 3 Bilirubin Ql (U) Negative Normal NEGATIVE The [facility] Comment on above: Performed By: #### E RUR, PREGU, UMICRO #### [facility] [address] [address] [address] Grover Mendoza Clarity (U) CLEAR Normal CLEAR [facility] Comment on above: Performed By: #### E RUR, PREGU, UMICRO #### [facility] [address] [place] [address] Dr. Grover Mendoza Color (U) YELLOW Normal YELLOW [facility] Comment on above: Performed By: #### E RUR, PREGU, UMICRO #### [facility] [address] [place] [address] Dr. Grover NASHAHChristy A micrscopic examination will be performed if indicated. Normal [facility] Comment on above: Performed By: #### E RUR, PREGU, UMICRO #### [facility] [address] [place] [address] Dr. Grover Mendoza Glucose Ql (U) Negative Normal NEGATIVE [facility] Comment on above: Performed By: #### E RUR, PREGU, UMICRO #### [facility] [address] [address] [address] Grover Mendoza Hemoglobin Ql (U) MODERATE Abnormal NEGATIVE [facility] Comment on above: Performed By: #### E RUR, PREGU, UMICRO #### [facility] [address] [address] [address] Grover Mendoza Ketones Ql (U) TRACE Abnormal NEGATIVE [facility] Comment on above: Performed By: #### E RUR, PREGU, UMICRO #### [facility] [address] [place] [address] Dr. Grover Mendoza LEUKOCYTES Negative Normal NEGATIVE [facility] Comment on above: Performed By: #### E RUR, PREGU, UMICRO #### [facility] [address] [address] [address] Grover Mendoza Nitrite Ql (U) Negative Normal NEGATIVE [facility] Comment on above: Performed By: #### E RUR, PREGU, UMICRO #### [facility] [address] [place] [address] Dr. Grover Mendoza pH (U) 5.5 [pH] Normal 5-[address] [facility] Comment on above: Performed By: #### E RUR PREGU, UMICRO #### [facility] [address] [place] [address] Dr. Grover Mendoza Protein (U) [Mass/Vol] 30 mg/dL Abnormal NEGATIVE/ TRACE [facility] Comment on above: Performed By: #### [facility] RUJael PREGU, UMICRO #### [facility] [address] [place] [address] Dr. Grover Mendoza SPEC GRAVITY >=1.030 Abnormal 1.005-<=1.025 [facility] Comment on above: Performed By: #### [facility] ONEAL PREGU, UMICRO #### [facility] [address] [place] [address] Dr. Grover Mendoza UR MICRO IND INDICATED Normal [facility] Comment on above: Performed By: #### E RUR PREGU, UMICRO #### [facility] [address] [place] [address] Dr. Grover Mendoza Urobilinogen Qn (U) 0.2 {Meg'U}/dL Normal 0.2 - 1. [address] [facility] Comment on above: Performed By: #### E RUR PREGU, UMICRO #### [facility] [address] [place] [address] Dr. Grover Mendoza LIPASEon 11-06-2022 Lipase [Catalytic activity/Vol] 58.0 U/L Critically low 73.0-393.[address] [facility] Comment on above: Performed By: #### A MY, CMP, LIPA #### [facility] [address] [address] [address] Grover Mendoza URon 11-06-2022 , QUAL Negative Normal NEGATIVE [facility] Comment on above: Performed By: #### E RUR, PREGU, UMICRO #### [facility] [address] [address] [address] Grover Mendoza PROF 14(COMP METB)on 023 Albumin [Mass/Vol] 3.3 g/dL Critically low 3.4-5.0 [facility] Comment on above: Performed By: #### A MY, CMP, LIPA #### [facility] [address] [address] [address] Grover Mendoza Albumin/Globulin [Mass ratio] 1.1 {ratio} Normal [facility] Comment on above: Performed By: #### A MY, CMP, LIPA #### [facility] [address] [address] [address] Grover Mendoza ALP [Catalytic activity/Vol] 73 U/L Normal 46-[address] [facility] Comment on above: Performed By: #### A MY, CMP, LIPA #### [facility] [address] [address] [address] Grover Mendoza ALT [Catalytic activity/Vol] 28 U/L Normal 14-[address] [facility] Comment on above: Performed By: #### A MY, CMP, LIPA #### [facility] [address] [address] [address] Grover Mendoza Anion gap [Moles/Vol] 12.4 mmol/L Normal [facility] Comment on above: Performed By: #### A MY, CMP, LIPA #### [facility] [address] [address] [address] Grover Mendoza AST [Catalytic activity/Vol] 20 U/L Normal 15-[address] [facility] Comment on above: Performed By: #### A MY, CMP, LIPA #### [facility] [address] [address] [address] Grover Mendoza Bilirubin [Mass/Vol] 0.9 mg/dL Normal 0.2-1.[address] [facility] Comment on above: Performed By: #### A MY, CMP, LIPA #### [facility] [address] [place] [address] Dr. Grover Mendoza Calcium [Mass/Vol] 8.4 mg/dL Critically low 8.5-10.1 [facility] Comment on above: Performed By: #### A MY, CMP, LIPA #### [facility] [address] [address] [address] Grover Mendoza Chloride [Moles/Vol] 106 mmol/L Normal 98-107 [facility] Comment on above: Performed By: #### A MY, CMP, LIPA #### [facility] [address] [place] [address] Dr. Grover Mendoza CO2 [Moles/Vol] 26.7 mmol/L Normal 21.0-32.0 The [facility] Comment on above: Performed By: #### A MY, CMP, LIPA #### [facility] [address] [place] [address] Dr. Grover Mendoza Creatinine [Mass/Vol] 0.63 mg/dL Normal 0.55-1.[address] [facility] Comment on above: Performed By: #### A MY, CMP, LIPA #### [facility] [address] [place] [address] Dr. Grover Mendoza EGFR-AF TURKISH >60 Normal >=60 [facility] Comment on above: Performed By: #### A MY, CMP, LIPA #### [facility] [address] [place] [address] Dr. Grover Mendoza EGFR-NON AF TURKISH >60 Normal >=60 [facility] Comment on above: Performed By: #### A MY, CMP, LIPA #### [facility] [address] [place] [address] Dr. Grover Mendoza Globulin (S) [Mass/Vol] 3.1 g/dL Normal [facility] Comment on above: Performed By: #### A MY, CMP, LIPA #### [facility] [address] [place] [address] Dr. Grover Mendoza Glucose [Mass/Vol] 93 mg/dL Normal 74-106 [facility] Comment on above: Performed By: #### A MY, CMP, LIPA #### [facility] [address] [address] [address] Grover Mendoza Potassium [Moles/Vol] 4.1 mmol/L Normal 3.5-5.1 [facility] Comment on above: Performed By: #### A MY, CMP, LIPA #### [facility] [address] [place] [address] Dr. Grover Mendoza Protein [Mass/Vol] 6.4 g/dL Normal 6.4-8.2 [facility] Comment on above: Performed By: #### A MY, CMP, LIPA #### [facility] [address] [place] [address] Dr. Grover Mendoza Sodium [Moles/Vol] 141 mmol/L Normal 136-145 [facility] Comment on above: Performed By: #### A MY, CMP, LIPA #### [facility] [address] [place] [address] Dr. Grover Mendoza Urea nitrogen [Mass/Vol] 12.0 mg/dL Normal 7.0-18.0 [facility] Comment on above: Performed By: #### A MY, CMP, LIPA #### [facility] [address] [place] [address] Dr. Grover Mendoza Urea nitrogen/Creatinine [Mass ratio] 19.0 mg/mg Normal [facility] Comment on above: Performed By: #### A MY, CMP, LIPA #### [facility] [address] [place] [address] Dr. Grover Mendoza URINE MICROSCOPIC ONLYon BACTERIA TRACE Abnormal NONE SEEN [facility] Comment on above: Performed By: #### E PREMA ONEAL UMICRO #### [facility] [address] [place] [address] Dr. Grover Mendoza Bacteria identified Cx Nom (U) NOT INDICATED Normal [facility] Comment on above: Performed By: #### E RUR, PREGU, UMICRO #### [facility] [address] [place] [address] Dr. Grover Mendoza CAST NONE SEEN Normal NONE SEEN [facility] Comment on above: Performed By: #### [facility] GANDARAR, PREGU, UMICRO #### [facility] [address] [address] [address] Grover Mendoza Crystals LM Nom (Urine sed) NONE SEEN Normal NONE SEEN [facility] Comment on above: Performed By: #### [facility] ONEAL PREGU, UMICRO #### [facility] [address] [address] [address] Grover Mendoza Epithelial cells LM Ql (Urine sed) MODERATE Abnormal NONE SEEN /RARE [facility] Comment on above: Performed By: #### [facility] ONEAL PREGU, UMICRO #### [facility] [address] [place] [address] Dr. Grover Mendoza MUCOUS TRACE Abnormal NONE SEEN [facility] Comment on above: Performed By: #### MARGIE CRISTINAU, UMICRO #### [facility] [address] [address] [address] Grover Mendoza RBC 5-10 Abnormal 0-2 [facility] Comment on above: Performed By: #### MARGIE CRISTINAU, UMICRO #### [facility] [address] [place] [address] Dr. Grover Mendoza WBC 0-2 Abnormal NONE SEEN [facility] Comment on above: Performed By: #### MARGIE CRISTINAU, UMICRO #### [facility] [address] [place] [address] Dr. Grover Mendoza XR ABD FLAT UP_PA [...] EVARISTO BOWER Date: 2022-11-06 20:53 Normal [facility] Covid-19 PCR (CVDTB)on 08 SARS-CoV-2 (COVID-19) RNA ATTILA+probe Ql (Unsp spec) Not detected Normal NOT DETECTED [facility] Comment on above: Result Comment: This test is not yet approved or cleared by the [place] FDA. When there are no FDA-approved or cleared tests available, and other criteria are met, FDA can make tests available under an emergency access mechanism called an Emergency Use Authorization (EUA). The EUA for this test is supported by the Events Manager of Health and Human Service's (HHS's) declaration [...] SARS-CoV-2. Performed By: #### V AGINT #### [facility] [address] [place] [address] Dr. Grover Mendoza CHLAMYDIA/GONOCOCCUS ATTILA (SW AB/URINE/PAPon 12-26-2021 Chlamydia trachomatis, ATTILA Negative Normal Negative [facility] Comment on above: Performed By: #### C T/NGNA #### [facility] [address] [address] [address] Grover Mendoza Neisseria gonorrhoeae, ATTILA Negative Normal Negative [facility] Comment on above: Performed By: #### C T/NGNA #### [facility] [address] [place] [address] Dr. Grover Mendoza VAGINITIS/VAGINOSIS DNA PROB Emil 12-24-2021 Jessi species Negative Normal Negative [facility] Comment on above: Performed By: #### V AGINT #### [facility] [address] [address] [address] Grover Mendoza Gardnerella vaginalis Positive Abnormal Negative [facility] Comment on above: Performed By: #### V AGINT #### [facility] [address] [address] [address] Grover Mendoza Trichomonas vaginalis Negative Normal Negative [facility] Comment on above: Performed By: #### V AGINT #### [facility] [address] [address] [address] Grover Mendoza Vital Signs Date Time Vital Sign Value Performing Clinician Faci lity 07-23-2024 12:02-0500 Body mass index (BMI) [Ratio] 27.42 kg/m2 Katharine CAMARENA Work Phone: Harry [facility] 07-23-2024 12:02-0500 Body weight 70.22 kg Katharine CAMARENA Work Phone: [facility] 07-23-2024 12:02-0500 Diastolic blood pressure 60 mm[Hg] Katharine CAMARENA Work Phone: [facility] 07-23-2024 12:02-0500 Systolic blood pressure 100 mm[Hg] Katharine CAMARENA Work Phone: [facility] 06-22-2024 16:28-0500 Body mass index (BMI) [Ratio] 26.75 kg/m2 Katharine CAMARENA Work Phone: [facility] 06-22-2024 16:28-0500 Body weight 68.49 kg Katharine CAMARENA Work Phone: [facility] 06-22-2024 16:28-0500 Diastolic blood pressure 64 mm[Hg] Katharine CAMARENA Work Phone: [facility] 06-22-2024 16:28-0500 Systolic blood pressure 108 mm[Hg] Katharine CAMARENA Work Phone: [facility] Encounters Encounter Date Encounter Type Care Provider Facility Start: 07-23-2024 End: 07-23-2024 Bamboo flowsheet Katharine Kirkwood PA Work Phone: [facility] Start: 07-23-2024 End: 07-23-2024 Bamboo flowsheet Katharine Byrnes PA Work Phone: [facility] Start: 07-23-2024 End: 07-23-2024 ambulatory KATHARINE BYRNES Not Available Start: 07-23-2024 End: 07-23-2024 Office outpatient visit 15 minutes Katharine CAMARENA Work Phone: [facility] Comment on above: Chlamydia trachomati s infection; BV (bacterial vaginosis); Exposure to STD; Yeast infection Start: 06-22-2024 End: 06-22-2024 ambulatory KATHARINE BYRNES Not Available Start: 06-22-2024 End: 06-22-2024 Office outpatient visit 15 minutes Katharine CAMARENA Work Phone: [facility] Comment on above: Exposure to STD (Molly kaci Dx) Start: 06-22-2024 End: 06-22-2024 Bamboo flowsheet Katharine CMAARENA Work Phone: [facility] Start: 06-22-2024 End: 06-24-2024 Bamboo flowsheet Katharine Byrnes PA Work Phone: [facility] Start: 06-22-2024 End: 06-24-2024 External Result Encounter Katharine CAMARENA Work Phone: [facility] External Department Unsolicited Start: 01-07-2024 End: 01-07-2024 ambulatory SEBLE RHONDA Not Available Start: 11-25-2023 End: 11-25-2023 ambulatory SEBLE RHONDA Not Available Start: 11-19-2023 End: 11-19-2023 ambulatory LOKI CARRERO Not Available Start: 10-29-2023 End: 10-29-2023 ambulatory LOKI CARRERO Not Available Start: 11-06-2022 End: 11-06-[address] Stepan CARRERO Facility:[facility] Start: 03-12-2022 End: 03-12-[address] Stepan CARRERO Facility:[facility] Start: 12-22-2021 End: 12-22-[address] LILIA NOVOA . Facility: Procedures Date Procedure Procedure Detail Performing Clinician Start: 06-22-2024 RECURRENT VAGINITIS (HTRX) Katharine CAMARENA Work Phone: Plan of Treatment Date Care Activity Detail Author Start: 01-07-2025 End: 01-07-2025 Patient encounter procedure 01/07/2025 11:00 AM EDT Office Visit [facility] [address] [place] [address] Seble Monreal DO [address] [place], [place] [id number] [facility] Start: 07-23-2024 End: 07-23-2024 Patient encounter procedure 07/23/2024 11:20 AM EST Office Visit [facility] [address] [place] [address] Katharine Byrnes PA [address] [place], [place] [id number] [facility] Start: 04-12-2024 Influenza vaccination Influenza Vacc ine (#1) [facility] CHLAMYDIA TRACHOMATI S (GENITO/STI) CHLAMYDIA TRACHOMATIS (GENITO/STI) Lab Routine Exposure to STD Ordered: 06/22/2024 [facility] Comment on above: Ordered: 06/22/2024 CHLAMYDIA TRACHOMATI S (GENITO/STI) CHLAMYDIA TRACHOMATIS (GENITO/STI) Lab Routine Chlamydia trachomatis infection BV (bacterial vaginosis) Exposure to STD Ordered: 07/23/2024 [facility] Comment on above: Ordered: 07/23/2024 Neisseria gonorrhoea e DNA [Presence] in Unspecified specimen by ATTILA with probe detection Neisseria gonorrhea DNA probe, direct Lab Routine Exposure to STD Ordered: 06/22/2024 [facility] Comment on above: Ordered: 06/22/2024 Neisseria gonorrhoea e DNA [Presence] in Unspecified specimen by ATTILA with probe detection Neisseria gonorrhea DNA probe, direct Lab Routine Chlamydia trachomatis infection BV (bacterial vaginosis) Exposure to STD Ordered: 07/23/2024 [facility] Comment on above: Ordered: 07/23/2024 SURESWAB(R) ADVANCED VAGINITIS PLUS, TMA SURESWAB(R) ADVANCED VAGINITIS PLUS, TMA Pathology and Cytology Routine Exposure to STD Ordered: 06/22/2024 [facility] Work Phone: Comment on above: Ordered: 06/22/2024 SURESWAB(R) ADVANCED VAGINITIS PLUS, TMA SURESWAB(R) ADVANCED VAGINITIS PLUS, TMA Pathology and Cytology Routine Chlamydia trachomatis infection BV (bacterial vaginosis) Exposure to STD Ordered: 07/23/2024 [facility] Work Phone: Comment on above: Ordered: 07/23/2024 Immunizations Immunization Date Immunization Notes Care Provider [facility] 05-27-2020 influenza, injectabl e, quadrivalent, preservative free Katharine CAMARENA Work Phone: [facility] 05-27-2020 influenza virus vacc ine, unspecified formulation Katharine CAMARENA Work Phone: [facility] Payers Date Payer Category Payer Medicaid [facility] [id number] 2022 Medicaid [id number] 2002 Unknown [id number] 2002 Unknown [id number] 2002 Unknown [id number] 2002 Unknown [id number] 2002 Unknown [id number] 2002 Unknown [id number] 2002 Unknown [id number] 2002 Unknown [id number] 2002 Unknown [id number] 1959 Unknown [id number] Social History Date Type Detail Facility Start: 04-18-2023 Tobacco smoking status OHIS Never sm oked tobacco [facility] Start: 04-18-2023 Tobacco use and exposure Smoke less tobacco non-user [facility] Start: 01-07-2024 Alcoholic beverage intake Life time non-drinker (finding) [facility] Start: 10-29-2023 End: 11-19-2023 History of Social function [facility] Start: 10-29-2023 End: 11-19-2023 Social connection and isolation panel [facility] Do you belong to any clubs or organizations such as temple groups, unions, fraternal or athletic groups, or school groups? No [facility] Are you now , , , , never or living with a partner? Living with partner [facility] How often to you hav e a drink containing alcohol? Monthly or less [facility] How many standard dr inks containing alcohol do you have on a typical day? 1 or 2 [facility] How often do you hav e 6 or more drinks on 1 occasion? Never [facility] How hard is it for y ou to pay for the very basics like food, housing, medical care, and heating Not very hard [facility] Do you feel stress - tense, restless, nervous, or anxious, or unable to sleep at night because your mind is troubled all the time - these days [OSQ] Rather much [facility] On those days that y ou engage in moderate to strenuous exercise, how many minutes, on average, do you exercise? Patient declined [facility] (I/We) worried wheth er (my/our) food would run out before (I/we) got money to buy more. Often true [facility] The food that (I/we) bought just didn't last, and (I/we) didn't have money to get more. Never true [facility] Start: 04-18-2023 Education 13 [facility] Start: 04-18-2023 Alcohol Comment caffeine: more than 4 cups per day soda,coffee, and redbulls [facility] Start: 2002 Sex assigned at Not on file [facility] History of Present illness Narrative 07-23-2024 MIGUE Sorto - 07/23/2024 11:20 AM EST Note Date & Type Note Facility 07-23-2024 History of Presen t illness Narrative Reason for Appointment: Patient ID: Bhumika Quevedo is a 24 y.o. female who presents for STI Screening Patient presents today for Medication Follow Up appointment. 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[facility]) 10/29/2023 Anxiety 10/29/2023 Bipolar II disorder ([facility]) 10/29/2023 Chronic fatigue syndrome 10/29/2023 Insomnia 10/29/2023 Major depressive disorder, single episode, unspecified ([facility]) 10/29/2023 Menorrhagia with regular cycle 10/29/2023 Mood swings 10/29/2023 Chlamydia trachomatis infection 07/23/2024 BV (bacterial vaginosis) 07/23/2024 Exposure to STD 07/23/2024 Resolved Ambulatory Problems Diagnosis Date Noted No Resolved Ambulatory Problems Past Medical History: Diagnosis Date Bipolar disorder ([facility]) Depression ([facility]) Tongue tied 2013 HISTORY PAST MEDICAL HISTORY SOCIAL HISTORY Past Medical History: Diagnosis Date Anxiety Bipolar disorder ([facility]/HCC) Depression (CMS/HCC) Tongue tied 2013 Social History Tobacco Use Smoking status: Never Smokeless tobacco: Never Vaping Use Vaping status: Never Used Substance Use Topics Alcohol use: Never Comment: caffeine: more than 4 cups per day soda,coffee, and redbulls Drug use: Never FAMILY HISTORY Family History Problem Relation Name Age of Onset Depression Mother Sharmaine Quevedo Arthritis Mother Sharmaine Quevedo Cancer Mother Sharmaine Quevedo Mental illness Mother Sharmaine Quevedo Depression Father Jae quevedo Arthritis Father Jae quevedo Depression Other mother's side Anxiety disorder Other mother's side Thyroid cancer Other SURGICAL HISTORY Past Surgical History: Procedure Laterality Date [place] INCISION OF TONGUE FOLD 2014 release of tongue tie REVIEW OF SYSTEMS Review of Systems: Review of Systems Genitourinary: Positive for vaginal discharge. All other systems reviewed and are negative. OBJECTIVE Objective: Physical Exam Constitutional: Appearance: Normal appearance. She is well-developed. Genitourinary: Vulva normal. Cardiovascular: Rate and Rhythm: Normal rate and regular rhythm. Pulmonary: Effort: Pulmonary effort is normal. Breath sounds: Normal breath sounds. Abdominal: General: Bowel sounds are normal. There is no distension. Palpations: Abdomen is soft. Tenderness: There is no abdominal tenderness. There is no guarding or rebound. Musculoskeletal: General: No swelling. Normal range of motion. Right lower leg: No edema. Left lower leg: No edema. Neurological: Mental Status: She is alert and oriented to person, place, and time. Skin: General: Skin is warm and dry. Psychiatric: Mood and Affect: Mood normal. Behavior: Behavior normal. Vitals and nursing note reviewed. Exam conducted with a outdoor landscape architect present. Vitals: Estimated body mass index is 27.42 kg/m as calculated from the following: Height as of 01/07/24: 5' 3 . Weight as of this encounter: 154 lb 12.8 oz. BP: 100/60 Patient's last menstrual period was 07/08/2024. ASSESSMENT & PLAN ICD-10-CM 1. Chlamydia trachomatis infection A56.8 SURESWAB(R) ADVANCED VAGINITIS PLUS, TMA CHLAMYDIA TRACHOMATIS (GENITO/STI) Neisseria gonorrhea DNA probe, direct 2. BV (bacterial vaginosis) N76.0 SURESWAB(R) ADVANCED VAGINITIS PLUS, TMA B96.89 CHLAMYDIA TRACHOMATIS (GENITO/STI) Neisseria gonorrhea DNA probe, direct 3. Exposure to STD Z20.2 SURESWAB(R) ADVANCED VAGINITIS PLUS, TMA CHLAMYDIA TRACHOMATIS (GENITO/STI) Neisseria gonorrhea DNA probe, direct Patient presents today for follow up positive treatment for std. Patient voiced that she feels as though she is still having vaginal itching/irritation since completing course of antibiotics. Vaginal cultures obtained without difficulty and patient will be notified of results. Documented by Nela Rahman LPN on behalf of: MIGUE Sorto documented in this encounter [facility] History of Present illness Narrative 06-22-2024 MIGUE Sorto - 06/22/2024 4:00 PM EST Note Date & Type Note Facility 06-22-2024 History of Presen t illness Narrative Reason for Appointment: Patient ID: Bhumika Quevedo is a 24 y.o. female who presents for STI Screening Patient presents today for STD Check. 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[facility]) 10/29/2023 Anxiety 10/29/2023 Bipolar II disorder ([facility]) 10/29/2023 Chronic fatigue syndrome 10/29/2023 Insomnia 10/29/2023 Major depressive disorder, single episode, unspecified ([facility]) 10/29/2023 Menorrhagia with regular cycle 10/29/2023 Mood swings 10/29/2023 Resolved Ambulatory Problems Diagnosis Date Noted No Resolved Ambulatory Problems Past Medical History: Diagnosis Date Bipolar disorder ([facility]/HCC) Depression ([facility]) Tongue tied 2013 HISTORY PAST MEDICAL HISTORY SOCIAL HISTORY Past Medical History: Diagnosis Date Anxiety Bipolar disorder ([facility]) Depression ([facility]) Tongue tied 2013 Social History Tobacco Use Smoking status: Never Smokeless tobacco: Never Vaping Use Vaping status: Never Used Substance Use Topics Alcohol use: Never Comment: caffeine: more than 4 cups per day soda,coffee, and redbulls Drug use: Never FAMILY HISTORY Family History Problem Relation Name Age of Onset Depression Mother Sharmaine Quevedo Arthritis Mother Sharmaine Quevedo Cancer Mother Sharmaine Quevedo Mental illness Mother Sharmaine Quevedo Depression Father Jae quevedo Arthritis Father Jae quevedo Depression Other mother's side Anxiety disorder Other mother's side Thyroid cancer Other SURGICAL HISTORY Past Surgical History: Procedure Laterality Date [place] INCISION OF TONGUE FOLD 2014 release of tongue tie REVIEW OF SYSTEMS Review of Systems: Review of Systems OBJECTIVE Objective: OBGyn Exam Vitals: Estimated body mass index is 26.75 kg/m as calculated from the following: Height as of 01/07/24: 5' 3 . Weight as of this encounter: 151 lb. BP: 108/64 Patient's last menstrual period was 06/11/2024. ASSESSMENT & PLAN ICD-10-CM 1. Exposure to STD Z20.2 SURESWAB(R) ADVANCED VAGINITIS PLUS, TMA CHLAMYDIA TRACHOMATIS (GENITO/STI) Neisseria gonorrhea DNA probe, direct Pt present today for an STD check. Pt has no symptoms however, has a new partner and just wants to make sure she is ok. Documented by Carlita Gil MA on behalf of: MIGUE Sorto documented in this encounter [facility] Evaluation note Note Date & Type Note Facility Evaluation note Diagnosis Exposure to STD- Primary documented in this encounter [facility] Evaluation note Note Date & Type Note Facility Evaluation note Diagnosis Chlamydia trachomatis infection Chlamydia trachomatis infection of unspecified site BV (bacterial vaginosis) Unspecified vaginitis and vulvovaginitis Exposure to STD Yeast infection documented in this encounter [facility] Summary Purpose Family History No Family History Records FoundNo Family History Records Found Advance Directives No Advanced Directives Records FoundNo Advanced Directives Records Found Additional Source Comments INFORMATION SOURCE (unrecogn ized section and content) DATE CREATED AUTHOR 11/10/2022 [facility] DATE CREATED AUTHOR 'S ORGANIZ ATION 07/26/2024 [facility] Care Teams (unrecognized sec tion and content) Lpc Relationship Specialty Start Date End Date Loki Carrero DO [address] [place] [address] PCP - General Family Medicine 12/18/22 Lpc Relationship Specialty Start Date End Date Loki Carrero DO [address] [place] [address] PCP - General Family Medicine 12/18/22 Lpc Relationship Specialty Start Date End Date Loki Carrero, DO [address] [place] [address] PCP - General Family Medicine 12/18/22 Lpc Relationship Specialty Start Date End Date Loki Carrero, DO [address] [place] [address] PCP - General Family Medicine 12/18/22 Reason for Visit (unrecogniz ed section and content) Reason Comments STI Screening FOR RECORDS PERTAINING TO PATIENTS WHO ARE [...] BE BASED ON THE PRIMARY CLINICAL RECORDS. [employer] [facility]. provides no warranty or guarantee of the accuracy or completeness of information in this document.
[2024-08-08 19:07] VITALS: BP 117/71; PULSE 75; TEMP 36.7; O2SAT 98; BMI 26.3
--- NOTE | 2024-08-08 19:56 | ED.GENADUL1 ---
Documented by User: MIGUE Patrick 08/08/24 20:05 HPI HPI - General Adult General Chief complaint: Skin/Abscess/Foreign Body Stated complaint: CUT Time Seen by Provider: 08/08/24 19:39 Source: patient Mode of arrival: walk-in History of Present Illness HPI narrative: Patient is a 24-year-old female presents to the ER for evaluation of left forearm wound. Patient states 1 week ago she was moving a item at work and cut her forearm on the metal edge. She denies any chance of foreign body, they initially applied skin glue which did not stay and she presents today with concern of open wound that has not yet closed. There is no streaking erythema or drainage mild dermatitis noted from most recent Band-Aid. Patient believes her last tetanus was around 5+ years. Patient appears in no distress and reports there is no pain at the wound. There is no numbness or tingling distally and no trouble moving her fingers or hand. Onset (ago): week(s) (1) Related Data Home Medications ?Medication ?Instructions ?Recorded ?Confirmed aripiprazole 5 mg tablet 5 mg PO DAILY 01/23/24 01/23/24 escitalopram oxalate 10 mg tablet 10 mg PO DAILY 01/23/24 01/23/24 Previous Rx's ?Medication ?Instructions ?Recorded ondansetron 4 mg disintegrating 4 mg PO Q6H PRN nausea and 01/23/24 tablet vomiting #12 tabs cephalexin 500 mg capsule 500 mg PO TID 5 days #15 caps 08/08/24 Allergies Allergy/AdvReac Type Severity Reaction Status Date / Time No Known Drug Allergies Allergy Verified 01/23/24 14:04 Opioid HPI Opioid Management Most Recent Opioid Data: Last ED Pain Assessment 08/08/24 19:30 Review of Systems ROS Constitutional Denies: fever, chills or change in weight Eyes Denies: change in vision Ears, nose, mouth, and throat Denies: throat pain or neck pain Cardiovascular Denies: chest pain or palpitations Gastrointestinal Denies: abdominal pain or nausea Musculoskeletal Denies: back pain or neck pain Integumentary/Breast Reports: other (Delayed Presentation left forearm laceration); Denies: rash PFSH PFSH Medical History (Updated 08/08/24 @ 19:57 by MIGUE Patrick) Depression ?F32.A - Depression, unspecified (ICD-10) Social History Smoking status: Never smoker Little interest or pleasure in doing things: not at all Feeling down, depressed, or hopeless: not at all Exam Narrative Exam Narrative: Nurse's notes and vital signs reviewed. Patient is not hypoxic. General: The patient appears well and in no apparent distress. Patient is resting comfortably on cart. Skin: Warm, dry, no pallor noted. 1 cm vertical laceration mid forearm dried with slight oval shape with dry base for likely granulation from adipose. no active bleeding or drainage.. wound margins symmetric without hypergranulation. Head: Normocephalic, atraumatic Eye: Normal conjunctiva Respiratory: Patient is in no distress Musculoskeletal: The left wrist shows no obvious deformity. There was no swelling noted. The patient had full rom of fingers, hand, wrist and elbow without difficulty. The patient had no pain to forearm laceration. The patient had no tenderness in the anatomical snuff box. The patient had no pain with axial loading of the thumb. Pulses are intact at brachial and radial 2+. There was no deficit at the elbow or shoulder. The patient has normal capillary refill to all distal digits. The patient has no evidence of cyanosis or mottling. The patient is able to flex and extend all digits without difficulty. Neurological: A&O x4, normal sensory, normal motor Psychiatric: Cooperative Constitutional Vital Signs, click to edit/add: Last Vital Signs Temp 98.1 F 08/08/24 19:07 Pulse 75 08/08/24 19:07 Resp 16 08/08/24 19:07 BP 117/71 08/08/24 19:07 Pulse Ox 98 08/08/24 19:07 O2 Del Method Room Air 08/08/24 19:07 Course Vital Signs Vital signs: Vital Signs Temperature 98.1 F 08/08/24 19:07 Pulse Rate 75 08/08/24 19:07 Respiratory Rate 16 08/08/24 19:07 Blood Pressure 117/71 08/08/24 19:07 Pulse Oximetry 98 08/08/24 19:07 Oxygen Delivery Method Room Air 08/08/24 19:07 Temperature 98.1 F 08/08/24 19:07 Pulse Rate 75 08/08/24 19:07 Respiratory Rate 16 08/08/24 19:07 Blood Pressure 117/71 08/08/24 19:07 Pulse Oximetry 98 08/08/24 19:07 Oxygen Delivery Method Room Air 08/08/24 19:07 Medical Decision Making MDM Narrative Medical decision making narrative: Tetanus was updated, patient given 1 dose of Keflex, no signs of streaking or lymphangitis but patient presents with a open wound from over a week ago. No evidence of foreign body or concern reported by the patient. The wound was cleansed with chlorhexidine solution and approximated with Steri-Strips to reduce skin tension. We recommend follow-up with family doctor for reevaluation. Should be placed on Keflex for just a few days and will need to monitor for signs of irritation to the adhesive. Recommend she keep the area clean and covered may shower but not submerge the wound. Discussed expected healing with secondary intention return to the ER if any signs or symptoms of infection develop. Would not recommend suture at this time with increased infection risk discussed. The patient is to followup with primary care physician in next 2-3 days or to return to the emergency department should any of the signs or symptoms worsen or new symptoms develop. Patient had questions answered. The patient agrees with the following Diagnosis and Treatment plan and the patient will be discharged home. Discharge Plan Discharge Chief Complaint: Skin/Abscess/Foreign Body Clinical Impression: Laceration of left forearm Patient Disposition: Home, Self-Care Time of Disposition Decision: 19:57 Condition: Good Prescriptions / Home Meds: New cephalexin 500 mg capsule 500 mg PO TID 5 Days Qty: 15 0RF No Action aripiprazole 5 mg tablet 5 mg PO DAILY escitalopram oxalate 10 mg tablet 10 mg PO DAILY ondansetron 4 mg tablet,disintegrating 4 mg PO Q6H PRN (Reason: nausea and vomiting) Qty: 12 0RF Print Language: Setswana Instructions: Laceration Without Closure (ED) Referrals: Stepan CAMACHO [Primary Care Provider] - 1 week Discharge Date/Time: 08/08/24 20:12 Documented by User: Jerson Argueta MD 08/14/24 12:48 HPI HPI - General Adult General Chief complaint: Skin/Abscess/Foreign Body Stated complaint: CUT Time Seen by Provider: 08/08/24 19:39 Related Data Home Medications ?Medication ?Instructions ?Recorded ?Confirmed aripiprazole 5 mg tablet 5 mg PO DAILY 01/23/24 01/23/24 escitalopram oxalate 10 mg tablet 10 mg PO DAILY 01/23/24 01/23/24 Previous Rx's ?Medication ?Instructions ?Recorded ondansetron 4 mg disintegrating 4 mg PO Q6H PRN nausea and 01/23/24 tablet vomiting #12 tabs cephalexin 500 mg capsule 500 mg PO TID 5 days #15 caps 08/08/24 Allergies Allergy/AdvReac Type Severity Reaction Status Date / Time No Known Drug Allergies Allergy Verified 01/23/24 14:04 Opioid HPI Opioid Management Most Recent Opioid Data: Last ED Pain Assessment 08/08/24 19:30 PFSH PFSH Medical History (Updated 08/08/24 @ 19:57 by MIGUE Patrick) Depression ?F32.A - Depression, unspecified (ICD-10) Social History Smoking status: Never smoker Little interest or pleasure in doing things: not at all Feeling down, depressed, or hopeless: not at all Exam Constitutional Vital Signs, click to edit/add: Last Vital Signs Temp 98.1 F 08/08/24 19:07 Pulse 75 08/08/24 19:07 Resp 16 08/08/24 19:07 BP 117/71 08/08/24 19:07 Pulse Ox 98 08/08/24 19:07 O2 Del Method Room Air 08/08/24 19:07 Course Vital Signs Vital signs: Vital Signs Temperature 98.1 F 08/08/24 19:07 Pulse Rate 75 08/08/24 19:07 Respiratory Rate 16 08/08/24 19:07 Blood Pressure 117/71 08/08/24 19:07 Pulse Oximetry 98 08/08/24 19:07 Oxygen Delivery Method Room Air 08/08/24 19:07 Temperature 98.1 F 08/08/24 19:07 Pulse Rate 75 08/08/24 19:07 Respiratory Rate 16 08/08/24 19:07 Blood Pressure 117/71 08/08/24 19:07 Pulse Oximetry 98 08/08/24 19:07 Oxygen Delivery Method Room Air 08/08/24 19:07 Medical Decision Making MDM Narrative Medical decision making narrative: Tetanus was updated, patient given 1 dose of Keflex, no signs of streaking or lymphangitis but patient presents with a open wound from over a week ago. No evidence of foreign body or concern reported by the patient. The wound was cleansed with chlorhexidine solution and approximated with Steri-Strips to reduce skin tension. We recommend follow-up with family doctor for reevaluation. Should be placed on Keflex for just a few days and will need to monitor for signs of irritation to the adhesive. Recommend she keep the area clean and covered may shower but not submerge the wound. Discussed expected healing with secondary intention return to the ER if any signs or symptoms of infection develop. Would not recommend suture at this time with increased infection risk discussed. The patient is to followup with primary care physician in next 2-3 days or to return to the emergency department should any of the signs or symptoms worsen or new symptoms develop. Patient had questions answered. The patient agrees with the following Diagnosis and Treatment plan and the patient will be discharged home. I, Dr Argueta, have reviewed the above progress note and course of action in the ER; agree with the above. I have gone over history and physical, and discussed disposition and treatment plan with the patient. Discharge Plan Discharge Chief Complaint: Skin/Abscess/Foreign Body Clinical Impression: Laceration of left forearm Patient Disposition: Home, Self-Care Time of Disposition Decision: 19:57 Condition: Good Prescriptions / Home Meds: New cephalexin 500 mg capsule 500 mg PO TID 5 Days Qty: 15 0RF No Action aripiprazole 5 mg tablet 5 mg PO DAILY escitalopram oxalate 10 mg tablet 10 mg PO DAILY ondansetron 4 mg tablet,disintegrating 4 mg PO Q6H PRN (Reason: nausea and vomiting) Qty: 12 0RF Print Language: Setswana Instructions: Laceration Without Closure (ED) Referrals: Stepan CAMACHO [Primary Care Provider] - 1 week Discharge Date/Time: 08/08/24 20:12
[2024-08-08] MEDS: ADACEL DIPH,PERTUSS(ACELL),TET VAC/PF 0.5 ML ADULT SYRINGE IM (20:00)
[2024-08-08] MEDS: CEPHALEXIN 500 MG CAPSULE PO (20:01)
== END 2024-08-08 20:12 | disposition home or self-care (01) ==
PROVIDERS: Emergency Provider Emergency Medicine; PCP Family Medicine
DX: S51.812A Laceration without foreign body of left forearm, initial encounter (principal); W45.8XXA Other foreign body or object entering through skin, initial encounter; Z23 Encounter for immunization
CPT/HCPCS: 90471; 90715; 99283